=== PATIENT | female | born 1990 | race Caucasian/White ===

== ENCOUNTER 2020-11-24 17:01 | Emergency (ER) | payer SELFPAY ==
[2020-11-24 17:05] VITALS: BP 151/73; PULSE 92; RESP 16; TEMP 37.3; O2SAT 99; BMI 41.5
--- NOTE | 2020-11-24 17:09 | DI.RAD.S_ITS ---
PROCEDURE: XR CHEST 2V INDICATIONS: chest pain on inspiration TECHNIQUE: 2 views of the chest were acquired. COMPARISON: None. FINDINGS: Surgical changes and devices: None. Lungs and pleura: Lungs are clear when large body habitus and reduced inspiratory volume are taken into account. No pleural effusions or pneumothorax. Mediastinum: Mediastinal contours are normal. Heart size is normal. Bones and chest wall: No suspicious bony abnormalities. Soft tissues appear unremarkable. IMPRESSION: Normal for age, source of current chest pain symptoms is not seen. Dictated by: Zion Dunbar M.D. on 11/24/2020 at 17:24 Approved by: Zion Dunbar M.D. on 11/24/2020 at 17:24
[2020-11-24 17:20] LABS: Add Manual Diff / Slide Review NO; Basophils Absolute Auto 0 /uL (0-100); Basophils Percent Auto 0.5 % (0-2); Eosinophils Absolute Auto 100 /uL (0-450); Eosinophils Percent Auto 1.3 % (2-4); Hematocrit 39.3 % (36-46); Hemoglobin 13.5 g/dL (12.0-16.0); Lymphocytes Absolute Auto 1800 /uL (1100-4500); Lymphocytes Percent Auto 24.7 % (25-40); Mean Corpuscular HGB Conc 34.3 % (30-36); Mean Corpuscular Hemoglobin 29.7 PG (26-34); Mean Corpuscular Volume 86.6 fL (80-100); Monocytes Absolute Auto 600 /uL (0-900); Monocytes Percent Auto 7.7 % (3-14); Neutrophils Absolute Auto 4900 /uL (1500-7000); Neutrophils Percent Auto 65.8 % (50-75); Platelet Count 269 X10^3/uL (150-400); Red Blood Cell Count 4.53 X10^6/uL (4.0-5.2); Red Cell Distribution Width 13.7 % (11.6-14.8); White Blood Cell Count 7.4 X10^3/uL (4.5-11.0)
[2020-11-24 17:34] LABS: Alanine Aminotransferase 20 IU/L (<35); Albumin 4.2 g/dL (3.5-5.0); Albumin Globulin Ratio 1.4 (1.0-2.8); Alkaline Phosphatase 65 U/L (38-126); Aspartate Aminotransferase 21 IU/L (14-36); Bilirubin Total 0.2 mg/dL (0.2-1.3); Blood Urea Nitrogen 18 mg/dL (7-17); Carbon Dioxide 26 mmol/L (22-32); Chloride 109 mmol/L (98-107); Creatine Kinase 139 U/L (30-135); Estimated Glomerular Filt Rate > 60.0 mL/min (>60); Globulin 3.1 g/dL (1.7-4.1); Glucose 110 mg/dL (70-100); HEMOLYSIS < 15 (0-50); Potassium 4.1 mmol/L (3.4-5.1); Sodium 140 mmol/L (137-145); Total Protein 7.3 g/dL (6.3-8.2)
[2020-11-24 17:46] LABS: Troponin I < 0.012 ng/mL (0.01-0.034)
[2020-11-24 17:50] LABS: Creatine Kinase MB 1.38 ng/mL (<2.37)
--- NOTE | 2020-11-24 19:48 | ED.CHESTPAIN ---
HPI - Chest Pain General Chief Complaint: Chest Pain Stated Complaint: left upper chest pain, pain on inhale Time Seen by Provider: 11/24/20 19:40 History of Present Illness HPI narrative: Patient complains off and on left-sided pressure 6/10 with variable durations in the past 4 weeks. No nausea vomiting diarrhea. No diaphoresis. No dyspnea patient states has been under lot of stress. Sleep deprivation lot of stress with work and outside sources. She does not specify. No family history of coronary disease with siblings or parents. Does not smoke. No history of high blood pressure or hypercholesteremia. Does not take control pills. No history of blood clots in legs or lungs before. Currently no chest pain. No exertional chest pain or dyspnea. Related Data Previous Rx's Medication Instructions Recorded cyclobenzaprine 10 mg tablet 10 mg PO Q8HP PRN #20 tab 01/27/17 Allergies Allergy/AdvReac Type Severity Reaction Status Date / Time Penicillins [PENICILLINS] Allergy Unknown Unverified 09/04/17 12:47 Review of Systems Review of Systems Narrative: GENERAL: Denies chills, fatigue, malaise, fever, sweats. HEENT: Denies sinus pain, ear pain, sore throat RESPIRATORY: Denies dyspnea, cough CARDIOVASCULAR: Complaint chest pain, denies palpitations GASTROINTESTINAL: Denies nausea, vomiting, abdominal pain : Denies dysuria, frequency, hematuria MUSCULOSKELETAL: denies muscle or bony pain SKIN: Denies rash, skin lesions NEUROLOGIC: Denies weakness, numbness ROS Unobtainable: All systems reviewed & are unremarkable except as noted in HPI and below Exam Narrative Exam Narrative: GENERAL: in no distress, not toxic not dyspneic HEAD: Normocephalic. EYES: Pupils equal round No scleral icterus. No injection no discharge ENT: Mucous membranes moist. NECK: Trachea midline. CARDIOVASCULAR: Regular rate and rhythm without murmurs, no chest wall tenderness on palpation RESPIRATORY: Clear to auscultation. Breath sounds equal bilaterally. No wheezes, rales, or rhonchi. GASTROINTESTINAL: Abdomen soft, non-tender EXTREMITIES: No gross deformities. BACK: No flank tenderness. NEURO: AOx4. SKIN: Warm and dry PSYCH: Not anxious, is cooperative Initial Vital Signs Initial Vital Signs: Vital Signs Temperature 99.2 F 11/24/20 17:05 Pulse Rate 92 H 11/24/20 17:05 Respiratory Rate 16 11/24/20 17:05 Blood Pressure 151/73 H 11/24/20 17:05 Pulse Oximetry 99 11/24/20 17:05 Scores HEART Score Heart Score history: Slightly Suspicious Heart Score EKG: Normal Heart Score Age: < 45 years old Heart Score risk factors: No known risk factors Heart Score troponin: < or = to normal limit Heart Score Total: 0 Course Course Course Narrative: No new issues during course of stay. No chest pain during course of stay. Orders Ordered: ED Orders 11/24/20 17:09 XR chest 2V Stat 11/24/20 17:10 EKG-12 Lead Stat 11/24/20 17:15 Complete Blood Count AUTO DIFF Stat Comprehensive Metabolic Panel Stat Troponin & CK Cardiac Panel Stat 11/24/20 20:00 D Dimer Stat Troponin I Stat 11/24/20 20:04 EKG-12 Lead Stat Reevaluation(s) Reevaluation #1: Reviewed results with patient. Agrees for discharge home and follow-up with primary care. At this time return precautions reviewed with her return precautions. She is comfortable with plan. No chest pain during course of stay. Time: 21:11 Consultations Consultation #1: Spoke with cardiology Dr. Murphy. He reviewed both EKGs. Readings likely related to body habitus/obesity. Time: 20:15 Vital Signs Vital signs: Vital Signs - 8 hr 11/24/20 21:20 Pulse Rate 72 Respiratory Rate 12 Blood Pressure 119/78 Pulse Oximetry 100 MDM - Chest Pain Differential Diagnosis Differential diagnosis: Likely atypical chest pain and other (Anxiety/PE) Lab Data Result diagrams: 11/24/20 17:15 11/24/20 17:15 Labs: Lab Results 11/24/20 11/24/20 11/24/20 Range/Units 17:15 17:15 20:00 WBC 7.4 (4.5-11.0) X10^3/uL RBC 4.53 (4.0-5.2) X10^6/uL Hgb 13.5 (12.0-16.0) g/dL Hct 39.3 (36-46) % MCV 86.6 (80-100) fL MCH 29.7 (26-34) PG MCHC 34.3 (30-36) % RDW 13.7 (11.6-14.8) % Plt Count 269 (150-400) X10^3/uL Neut % (Auto) 65.8 (50-75) % Lymph % (Auto) 24.7 L (25-40) % [place] % (Auto) 7.7 (3-14) % Eos % (Auto) 1.3 L (2-4) % Baso % (Auto) 0.5 (0-2) % Neut # (Auto) 4900 (9619-8488) /uL Lymph # (Auto) 1800 (0002-9115) /uL [place] # (Auto) 600 (0-900) /uL Eos # (Auto) 100 (0-450) /uL Baso # (Auto) 0 (0-100) /uL D-Dimer < 200 (<230) ng/mL Sodium 140 (137-145) mmol/L Potassium 4.1 (3.4-5.1) mmol/L Chloride 109 H (98-107) mmol/L Carbon Dioxide 26 (22-32) mmol/L BUN 18 H (7-17) mg/dL Creatinine 0.72 (0.52-1.04) mg/dL Estimated GFR > 60.0 (>60) mL/min BUN/Creatinine Ratio 25.0 H (6-22) Glucose 110 H (70-100) mg/dL Calcium 9.0 (8.4-10.2) mg/dL Total Bilirubin 0.2 (0.2-1.3) mg/dL AST 21 (14-36) IU/L ALT 20 (<35) IU/L Alkaline Phosphatase 65 (38-126) U/L Total Creatine Kinase 139 H (30-135) U/L CK-MB (CK-2) 1.38 (<2.37) ng/mL CK-MB (CK-2) Rel Index 1.0 L (1.5-5.0) % Troponin I < 0.012 (0.01-0.034) ng/mL Total Protein 7.3 (6.3-8.2) g/dL Albumin 4.2 (3.5-5.0) g/dL Globulin 3.1 (1.7-4.1) g/dL Albumin/Globulin Ratio 1.4 (1.0-2.8) 11/24/20 Range/Units 20:00 WBC (4.5-11.0) X10^3/uL RBC (4.0-5.2) X10^6/uL Hgb (12.0-16.0) g/dL Hct (36-46) % MCV (80-100) fL MCH (26-34) PG MCHC (30-36) % RDW (11.6-14.8) % Plt Count (150-400) X10^3/uL Neut % (Auto) (50-75) % Lymph % (Auto) (25-40) % [place] % (Auto) (3-14) % Eos % (Auto) (2-4) % Baso % (Auto) (0-2) % Neut # (Auto) (9977-3795) /uL Lymph # (Auto) (8191-0167) /uL [place] # (Auto) (0-900) /uL Eos # (Auto) (0-450) /uL Baso # (Auto) (0-100) /uL D-Dimer (<230) ng/mL Sodium (137-145) mmol/L Potassium (3.4-5.1) mmol/L Chloride (98-107) mmol/L Carbon Dioxide (22-32) mmol/L BUN (7-17) mg/dL Creatinine (0.52-1.04) mg/dL Estimated GFR (>60) mL/min BUN/Creatinine Ratio (6-22) Glucose (70-100) mg/dL Calcium (8.4-10.2) mg/dL Total Bilirubin (0.2-1.3) mg/dL AST (14-36) IU/L ALT (<35) IU/L Alkaline Phosphatase (38-126) U/L Total Creatine Kinase (30-135) U/L CK-MB (CK-2) (<2.37) ng/mL CK-MB (CK-2) Rel Index (1.5-5.0) % Troponin I < 0.012 (0.01-0.034) ng/mL Total Protein (6.3-8.2) g/dL Albumin (3.5-5.0) g/dL Globulin (1.7-4.1) g/dL Albumin/Globulin Ratio (1.0-2.8) ECG Data Interpretation: EKG at 7:35 a.m. normal sinus rhythm rate [address] elevation or depression Repeat EKG at 8:04 p.m. normal sinus rhythm rate [address] elevation or depression MDM Narrative Medical decision making narrative: Appropriate for discharge home. Patient has low heart score and low heart risk factors. Has been under lot of stress. Reviewed EKGs with farmworker livestock. Patient comfortable with discharge home and follow-up with primary care 2 sets of troponin completed here. Onset 4 weeks ago. Discharge Plan Departure Patient Disposition: Home Clinical Impression: Atypical chest pain Instructions: DI for Atypical Chest Pain Activity Restrictions/Additional Instructions: Return if worse or for any questions or concerns. Return if any trouble breathing or chest pain with walking. See family doctor in a week for recheck. Call provided primary resource if he needed a family doctor. Prescriptions: No Action cyclobenzaprine 10 MG tablet 10 mg PO Q8HP PRNQty: 20 RF: 0 Referrals: [facility] [Outside]
[2020-11-24 20:41] LABS: D Dimer < 200 ng/mL (<230)
[2020-11-24 20:53] LABS: Troponin I < 0.012 ng/mL (0.01-0.034)
[2020-11-24 21:20] VITALS: BP 119/78; PULSE 72; RESP 12; O2SAT 100
== END 2020-11-24 21:21 | disposition home or self-care (01) ==
PROVIDERS: Emergency Medicine; Emergency Provider Emergency Medicine
DX: R07.89 Other chest pain (principal)
CPT/HCPCS: 36415; 71046; 80053; 82550; 82553; 84484; 85025; 85379; 93005; 99284

== ENCOUNTER 2021-01-08 18:41 | Emergency (ER) | payer OTHER, SELFPAY ==
[2021-01-08 18:50] VITALS: BP 169/78; PULSE 78; RESP 18; TEMP 36.3; O2SAT 100; BMI 41.5
--- NOTE | 2021-01-08 19:16 | ED_ITS ---
HPI - Headache General Chief Complaint: Headache Stated Complaint: PERSISTANT HEADACHE Time Seen by Provider: 01/08/21 19:14 Mode of arrival: Ambulatory Limitations: no limitations History of Present Illness HPI Narrative: Patient is a 30-year-old female who presents with ongoing headache for last 2 weeks. She typically does not get headaches. She has had a constant headache in her temporal areas more on left than right she states about level of 6. She occasionally feels in the back of her head. She denies any blurry vision or double vision. She has no changes in bowel or bladder habits. She has not had any fever. No environmental changes no food changes no medication changes well. She has been taking ibuprofen it does not seem to help much. She has appoint with her primary care doctor later this week. She has no difficulty ambulating or balance issues. Related Data Previous Rx's Medication Instructions Recorded cyclobenzaprine 10 mg tablet 10 mg PO Q8HP PRN #20 tab 01/27/17 ketorolac 10 mg tablet 10 mg PO TID PRN #10 tab 01/08/21 Allergies Allergy/AdvReac Type Severity Reaction Status Date / Time Penicillins [PENICILLINS] Allergy Unknown Unverified 09/04/17 12:47 Review of Systems Review of Systems Narrative: GENERAL: Denies chills, fatigue, malaise, fever, sweats, travel HEENT: Denies sinus pain, ear pain, sore throat, difficulty swallowing, neck pain RESPIRATORY: Denies dyspnea, cough, wheezing, hemoptysis, sputum. CARDIOVASCULAR: Denies chest pain, palpitations, orthopnea, edema GASTROINTESTINAL: Denies nausea, vomiting, abdominal pain, diarrhea, constipation, melena. : Denies dysuria, frequency, incontinence, hematuria, urinary retention, flank pain. MUSCULOSKELETAL: Denies weakness, joint pain, or bony pain SKIN: No rash, no erythema, no pruritus NEUROLOGIC: See HPI PSYCHIATRIC: No concerning psychosocial issues. 12 point review of systems is negative except for those stated above and HPI Patient History Social History Smoking Status: Never smoker Smoking Status: Never smoker Substance Use Type: does not use Exam Initial Vital Signs Initial Vital Signs: Vital Signs Temperature 97.4 F L 01/08/21 18:50 Pulse Rate 78 01/08/21 18:50 Respiratory Rate 18 01/08/21 18:50 Blood Pressure 169/78 H 01/08/21 18:50 Pulse Oximetry 100 01/08/21 18:50 GENERAL: Alert well-appearing 30-year-old female BMI 41 and in no acute distress. HEENT: Head atraumatic,EOMI, pupils reactive, face symmetric, moist mucous membranes CARDIOVASCULAR: Regular rate and rhythm without murmurs, rubs or gallops. RESPIRATORY: Breath sounds equal bilaterally, no wheezes rales or rhonchi. ABDOMEN: Soft, nontender. Normoactive bowel sounds all 4 quadrants. No guard ing or rebound. EXTREMITIES: Normal range of motion, no clubbing or edema. Neurovascularly intact NEUROLOGICAL: Alert and oriented x4.Normal gait and speech. Cranial nerves II through XII grossly intact. Good [id number], good [id number], strength equal bilaterally, no dysarthria or aphasia, sensation in tact to soft touch bilaterally, no visual changes, no facial droop SKIN: Warm, dry, no laceration, no petechiae, no rashes or lesions. Scores NIH Stroke Scale Level of Conciousness: Alert, keenly responsive Ask month/age: Answers both questions correctly. Open/close eyes, close hand: Performs both tasks correctly Best gaze horizontal: Normal Visual hannah: No visual loss Facial palsy: Normal symetrical movement Left arm drift: No drift for full 10 sec Right arm drift: No drift for full 10 sec Left leg drift: No drift for full 5 sec Right leg drift: No drift for full 5 sec Limb ataxia: Absent Sensory on face/arms/legs: Normal, no sensory loss Best language: No aphasia, normal Dysarthria: Normal Extinction or inattention: No abnormality Total NIH Stroke scale score: 0 Course Orders Ordered: Discontinued Medications Sodium Chloride (Normal Saline 0.9%) 1,000 mls @ 1,000 mls/hr IV BOLUS ONE Stop: 01/08/21 20:27 Last Infusion: 01/08/21 20:42 Dose: 0 mls/hr Documented by: Admin: 01/08/21 19:53 Dose: 1,000 mls/hr Documented by: JANY Ketorolac Tromethamine (Ketorolac 30 Mg/Ml Vial) 15 mg IV NOW ONE Stop: 01/08/21 19:29 Last Admin: 01/08/21 19:53 Dose: 15 mg Documented by: JANY Vital Signs Vital signs: Vital Signs - 8 hr 01/08/21 20:50 Pulse Rate 66 Respiratory Rate 16 Blood Pressure 134/70 Pulse Oximetry 98 MDM - Headache Lab Data Result diagrams: 01/08/21 19:40 01/08/21 19:40 Labs: Lab Results 01/08/21 01/08/21 Range/Units 19:40 19:40 WBC 7.3 (4.5-11.0) X10^3/uL RBC 4.62 (4.0-5.2) X10^6/uL Hgb 13.6 (12.0-16.0) g/dL Hct 40.4 (36-46) % MCV 87.4 (80-100) fL MCH 29.5 (26-34) PG MCHC 33.7 (30-36) % RDW 13.6 (11.6-14.8) % Plt Count 303 (150-400) X10^3/uL Neut % (Auto) 65.5 (50-75) % Lymph % (Auto) 25.2 (25-40) % [place] % (Auto) 7.0 (3-14) % Eos % (Auto) 1.7 L (2-4) % Baso % (Auto) 0.6 (0-2) % Neut # (Auto) 4800 (3644-0739) /uL Lymph # (Auto) 1800 (8940-0898) /uL [place] # (Auto) 500 (0-900) /uL Eos # (Auto) 100 (0-450) /uL Baso # (Auto) 0 (0-100) /uL ESR 4 (0-20) MM/HR Sodium 141 (137-145) mmol/L Potassium 3.6 (3.4-5.1) mmol/L Chloride 106 (98-107) mmol/L Carbon Dioxide 28 (22-32) mmol/L BUN 16 (7-17) mg/dL Creatinine 0.71 (0.52-1.04) mg/dL Estimated GFR > 60.0 (>60) mL/min BUN/Creatinine Ratio 22.5 H (6-22) Glucose 87 (70-100) mg/dL Calcium 9.2 (8.4-10.2) mg/dL Total Bilirubin 0.2 (0.2-1.3) mg/dL AST 25 (14-36) IU/L ALT 27 (<35) IU/L Alkaline Phosphatase 75 (38-126) U/L C-Reactive Protein 0.7 (<1.0) mg/dL Total Protein 7.2 (6.3-8.2) g/dL Albumin 4.2 (3.5-5.0) g/dL Globulin 3.0 (1.7-4.1) g/dL Albumin/Globulin Ratio 1.4 (1.0-2.8) Point of Care Testing Test Results Negative Imaging Data CT scan - head: Radiologist's Impression: PROCEDURE: CT HEAD/BRAIN WO CON INDICATIONS: temperol headache ongoing 2 weeks TECHNIQUE: Noncontrast 4.5 mm thick angled axial sections acquired from the foramen magnum to the vertex, with coronal and sagittal reformats. For radiation dose reduction, the following was used: automated exposure control, adjustment of mA and/or kV according to patient size. COMPARISON: None. FINDINGS: Image quality: Excellent. CSF spaces: Basal cisterns are patent. No extra-axial fluid collections. Ventricles are normal in size and shape. Brain: No midline shift. No intracranial masses or hemorrhage. [place]ima-white matter interface is normal. Skull and face: Calvarium and visualized facial bones are intact, without suspicious lesions. Sinuses: Visualized sinuses and mastoids are clear. IMPRESSION: No acute intracranial process. Dictated by: Alberto Bach M.D. on 01/08/2021 at 19:59 Approved by: Alberto Bach M.D. on 01/08/2021 at 20:0 [facility] Narrative Medical decision making narrative: Differential diagnosis includes temporal arteritis, normal pressure hydrocephalus, atypical migraine, carbon monoxide, medication/food induced, cluster headache Patient has a negative NIH stroke scale. CRP and ESR also negative low suspicion for temporal arteritis head CT is negative does not show any masses. Possible environmental factors causing worsening headache. It has been extremely hot and smoking here the last few days. He is feeling better after Toradol. She certainly has no focal deficits. Recommend outpatient follow-up care provider. Discharge Plan Departure Patient Disposition: Home Clinical Impression: Headache Instructions: DI for Headache Activity Restrictions/Additional Instructions: *You have been diagnosed with headache *What to do: At this time head CT and blood work is overall reassuring. I recommend that he follow up with her primary care provider as scheduled this week. May need further testing or neurology referral. *Continue to take medications as directed Ketorolac 10 mg every 8 hours if needed for pain do not take with ibuprofen or other NSAIDs Tylenol 1000 mg every 6 hours if needed for [id number] pain *Follow up with your primary care provider in 2-3 days *Return to ER if you should have increasing pain, weakness, difficulty walking, visual change or any new, worsening or concerning symptoms Prescriptions: New ketorolac 10 mg tablet 10 mg PO TID PRN (Reason: pain) Qty: 10 RF: 0 No Action cyclobenzaprine 10 MG tablet 10 mg PO Q8HP PRNQty: 20 RF: 0
--- NOTE | 2021-01-08 19:28 | DI.CT.S_ITS ---
PROCEDURE: CT HEAD/BRAIN WO CON INDICATIONS: temperol headache ongoing 2 weeks TECHNIQUE: Noncontrast 4.5 mm thick angled axial sections acquired from the foramen magnum to the vertex, with coronal and sagittal reformats. For radiation dose reduction, the following was used: automated exposure control, adjustment of mA and/or kV according to patient size. COMPARISON: None. FINDINGS: Image quality: Excellent. CSF spaces: Basal cisterns are patent. No extra-axial fluid collections. Ventricles are normal in size and shape. Brain: No midline shift. No intracranial masses or hemorrhage. [place]-white matter interface is normal. Skull and face: Calvarium and visualized facial bones are intact, without suspicious lesions. Sinuses: Visualized sinuses and mastoids are clear. IMPRESSION: No acute intracranial process. Dictated by: Alberto Bach M.D. on 01/08/2021 at 19:59 Approved by: Alberto Bach M.D. on 01/08/2021 at 20:01
[2021-01-08] MEDS: SODIUM CHLORIDE 0.9% 1,000 ML 1000 ML IV (19:53)
[2021-01-08] MEDS: KETOROLAC 30 MG/ML VIAL 15 MG IV (19:53)
[2021-01-08 19:55] LABS: Add Manual Diff / Slide Review NO; Basophils Absolute Auto 0 /uL (0-100); Basophils Percent Auto 0.6 % (0-2); Eosinophils Absolute Auto 100 /uL (0-450); Eosinophils Percent Auto 1.7 % (2-4); Hematocrit 40.4 % (36-46); Hemoglobin 13.6 g/dL (12.0-16.0); Lymphocytes Absolute Auto 1800 /uL (1100-4500); Lymphocytes Percent Auto 25.2 % (25-40); Mean Corpuscular HGB Conc 33.7 % (30-36); Mean Corpuscular Hemoglobin 29.5 PG (26-34); Mean Corpuscular Volume 87.4 fL (80-100); Monocytes Absolute Auto 500 /uL (0-900); Neutrophils Absolute Auto 4800 /uL (1500-7000); Neutrophils Percent Auto 65.5 % (50-75); Platelet Count 303 X10^3/uL (150-400); Red Blood Cell Count 4.62 X10^6/uL (4.0-5.2); Red Cell Distribution Width 13.6 % (11.6-14.8); White Blood Cell Count 7.3 X10^3/uL (4.5-11.0)
[2021-01-08 20:07] LABS: Alanine Aminotransferase 27 IU/L (<35); Albumin 4.2 g/dL (3.5-5.0); Albumin Globulin Ratio 1.4 (1.0-2.8); Alkaline Phosphatase 75 U/L (38-126); Aspartate Aminotransferase 25 IU/L (14-36); BUN Creatinine Ratio 22.5 (6-22); Bilirubin Total 0.2 mg/dL (0.2-1.3); Blood Urea Nitrogen 16 mg/dL (7-17); C-Reactive Protein Quant 0.7 mg/dL (<1.0); Calcium 9.2 mg/dL (8.4-10.2); Carbon Dioxide 28 mmol/L (22-32); Chloride 106 mmol/L (98-107); Estimated Glomerular Filt Rate > 60.0 mL/min (>60); Glucose 87 mg/dL (70-100); HEMOLYSIS < 15 (0-50); Potassium 3.6 mmol/L (3.4-5.1); Sodium 141 mmol/L (137-145); Total Protein 7.2 g/dL (6.3-8.2)
[2021-01-08 20:13] LABS: Erythrocyte Sedimentation Rate 4 MM/HR (0-20)
[2021-01-08 20:50] VITALS: BP 134/70; PULSE 66; RESP 16; O2SAT 98
== END 2021-01-08 20:50 | disposition home or self-care (01) ==
PROVIDERS: Emergency Provider Emergency Medicine
DX: R51.9 Headache, unspecified (principal)
CPT/HCPCS: 36415; 70450; 80053; 81025; 85025; 85651; 86140; 96361; 96374; 99284; J1885

== ENCOUNTER → 2021-01-16 08:13 | Outpatient (CLI) | payer OTHER, SELFPAY ==
[2021-01-16 09:06] LABS: Cholesterol 157 mg/dL (140-199); HDL Cholesterol 50 mg/dL (40-60); LDL Cholesterol Calculated 90 mg/dL (<100); Triglycerides 87 mg/dL (35-150)
[2021-01-16 09:53] LABS: TSH w/ Reflex to FT4 3.18 uIU/mL (0.47-4.68)
== END ==
PROVIDERS: PCP Registered Nurse; Referring Provider Registered Nurse; Visit Provider Registered Nurse
DX: F41.8 Other specified anxiety disorders (principal); Z82.49 Family history of ischemic heart disease and other diseases of the circulatory system
CPT/HCPCS: 36415; 80061; 84443

== ENCOUNTER 2025-03-21 21:38 | Emergency (ER) | payer OTHER, SELFPAY ==
[2025-03-21 21:45] VITALS: BP 177/100; PULSE 92; RESP 16; TEMP 36.8; O2SAT 99; BMI 40.3
--- NOTE | 2025-03-21 21:48 | DI.RAD.S_ITS ---
PROCEDURE: XR FOREARM LT 2V INDICATIONS: fall with pain to left forearm TECHNIQUE: 2 views of the forearm were acquired. COMPARISON: None. FINDINGS: Acute impacted fracture of the distal radius ulna. No dislocation. IMPRESSION: Suspect ulna fracture. Dictated by: Abel Oquendo M.D. on 03/21/2025 at 23:16 Approved by: Abel Oquendo M.D. on 03/21/2025 at 23:17
[2025-03-21] MEDS: ACETAMINOPHEN 325 MG TABLET 975 MG PO (21:52)
--- NOTE | 2025-03-21 23:37 | ED_ITS ---
HPI - Extremity Injury (Upper) General Chief Complaint: Extremity Injury, Upper Stated Complaint: fell, Lt arm pain/injury Time Seen by Provider: 03/21/25 23:30 Source: patient Mode of arrival: Ambulatory History of Present Illness HPI narrative: 34-year-old female who fell on an outstretched hand after missing a step and having pain in her left forearm area. She denies any neurovascular compromise. Related Data Home Medications ?Medication ?Instructions ?Recorded ?Confirmed Calms Forte PO 01/12/21 01/12/21 Nerve Tonic PO 01/12/21 01/12/21 Previous Rx's ?Medication ?Instructions ?Recorded ketorolac 10 mg tablet 10 mg PO TID PRN pain #10 ta bs 01/08/21 escitalopram oxalate 20 mg tablet 20 mg PO DAILY #30 t abs 01/27/21 (Lexapro) trazodone 50 mg tablet 50 mg PO BEDTIME PRN insomni a #30 01/27/21 tabs Allergies Allergy/AdvReac Type Severity Reaction Status Date / Time Penicillins (PENICILLINS) Allergy Unknown hives Unverified 03/21/25 21:44 Review of Systems Review of Systems ROS Unobtainable: All systems reviewed & are unremarkable except as noted in HPI and below Patient History Medical History Chicken pox (~1997) Encounter for counseling regarding contraception Family History Father Diabetes mellitus Mother Mental health problem Grandfather Cancer Grandmother Diabetes mellitus History of heart disease Social History Smoking Status: Never smoker Smoking Status: Never smoker Exam Narrative Exam Narrative: General: Patient appears to be in no acute distress, acting appropriately Head: normocephalic, atraumatic, HEENT: Pupils equal round reactive, eyes tracking well, neck supple, no JVD Heart: regular rate and rhythm, no murmurs, rubs, or gallops heard Lungs: clear to auscultation, no adventitious sounds Abdomen: soft , nontender, nondistended, positive bowel sounds Neurological: no focal neurological signs, moving all extremities well, alert and oriented x3, Psych: good judgment ,good insight, mood is normal. ext: left forearm good sensation, nv intact but cannot rotate due to pain Initial Vital Signs Initial Vital Signs: Vital Signs Temperature 98.2 F 03/21/25 21:45 Pulse Rate 92 H 03/21/25 21:45 Respiratory Rate 16 03/21/25 21:45 Blood Pressure 177/100 H 03/21/25 21:45 Pulse Oximetry 99 03/21/25 21:45 Oxygen Delivery Method Room Air 03/21/25 21:45 Course Orders Ordered: ED Orders 03/21/25 21:48 XR forearm LT 2V Stat Discontinued Medications Acetaminophen (Acetaminophen 325 Mg Tablet) 975 mg PO NOW ONE Stop: 03/21/25 21:50 Last Admin: 03/21/25 21:52 Dose: 975 mg Documented By: TODD Ibuprofen (Ibuprofen 400 Mg Tablet) 800 mg PO NOW ONE Stop: 03/22/25 00:12 Last Admin: 03/22/25 00:17 Dose: 800 mg Documented By: CARMEN Consultations Consultation #1: consultation with Dr kenny who agreed with plan of sugar-tong splint and follow up this week. Time: 23:40 Vital Signs Vital signs: Vital Signs - 8 hr 03/21/25 21:45 03/22/25 00:24 Temperature 98.2 F Pulse Rate 92 H 89 Respiratory Rate 16 20 Blood Pressure 177/100 H 155/98 H Pulse Oximetry 99 97 Oxygen Delivery Method Room Air Room Air MDM - Extremity Injury (Upper) Imaging Data Extremity x-ray #1: Radiologist's Impression: Acute impacted fracture of the distal radius ulna. No dislocation. MDM Narrative Medical decision making narrative: 34-year-old female who fell on the outstretched hand after missing a step and is found to have an acute impacted fracture distal radius ulna. Patient will be placed in a sugar-tong splint and given splint instructions and will follow up with Orthopedic surgery this week. Case discussed with Orthopedic surgery. Discharge Plan Departure Patient Disposition: Home Clinical Impression: Fracture of distal end of ulna Qualifiers: Encounter type: initial encounter Fracture type: closed Fracture morphology: other fracture Laterality: left Qualified Code(s): S52.692A - Other fracture of lower end of left ulna, initial encounter for closed fracture Instructions: DI for Wrist Fracture, How to Take Care of Your Splint Activity Restrictions/Additional Instructions: Instructions given on splint care. Continue use ibuprofen and Tylenol as needed. Follow up with Orthopedic surgery this week. Orthopedic surgeon is aware of case. Follow up sooner if any new symptoms. Prescriptions: No Action Nerve Tonic PO Calms Forte PO escitalopram oxalate [Lexapro] 20 mg tablet 20 mg PO DAILY Qty: 30 3RF trazodone 50 mg tablet 50 mg PO BEDTIME PRN (Reason: insomnia) Qty: 30 3RF ketorolac 10 mg tablet 10 mg PO TID PRN (Reason: pain) Qty: 10 0RF Referrals: Sara Villareal PA-C [Primary Care Provider, Family Practice] Brenda Kenny DO [Physician, Orthopedic Surgery] Stand Alone Forms: Patient Portal/API
[2025-03-22] MEDS: IBUPROFEN 400 MG TABLET 800 MG PO (00:17)
[2025-03-22 00:24] VITALS: BP 155/98; PULSE 89; RESP 20; O2SAT 97
== END 2025-03-22 00:27 | disposition home or self-care (01) ==
PROVIDERS: Emergency Provider Family Medicine; PCP Physician Assistant
DX: S52.692A Other fracture of lower end of left ulna, initial encounter for closed fracture (principal); W18.30XA Fall on same level, unspecified, initial encounter
CPT/HCPCS: 73090; 99283